=== PATIENT | male | born 1970 | race Caucasian/White ===

== ENCOUNTER 2019-05-16 10:48 | Emergency (ER) | payer SELFPAY ==
[~2019-05-16] VITALS: Ht 175.3 cm; Wt 72.6 kg
[2019-05-16] MEDS ORDERED: PLAVIX75 MG PO (10:59)
[2019-05-16] MEDS ORDERED: VENTOLIN HFA18 GM INH (12:06)
[2019-05-16] MEDS ORDERED: TESSALON PERLE100 MG PO (12:06)
--- NOTE | 2019-05-17 13:16 | EKG ---
[facility] [address] [facility] [place], [place] [address] Signed Sinus tachycardia Biatrial enlargement Rightward axis Anterior infarct , age undetermined Abnormal ECG Confirmed by BARI JEAN DO ([id number]) on 05/17/2019 1:16:21 PM Electronically Signed By: BARI JEAN DO 05/17/19 1316 PATIENT NAME: LUCI JORDAN Electrocardiogram DATE OF : 72 PHYSICIAN: BAIR JEAN DO REPORT #: [id number] REPORT IS CONFIDENTIAL AND NOT TO BE RELEASED WITHOUT AUTHORIZATION
== END 2019-05-16 12:29 | disposition home or self-care (01) ==
LOC: ED 10:48
DX: J10.1 Influenza due to other identified influenza virus with other respiratory manifestations (principal); Z86.73 Personal history of transient ischemic attack (TIA), and cerebral infarction without residual deficits; F17.200 Nicotine dependence, unspecified, uncomplicated; Z79.899 Other long term (current) drug therapy
CPT/HCPCS: 71045; 80053; 83735; 84484; 85025; 87502; 93005; 93010; 94640; 99284-25